=== PATIENT | male | born 1965 | race African-American/Black ===

== ENCOUNTER 2016-10-05 13:28 | Outpatient (CLI) | payer OTHER ==
--- NOTE | 2016-10-05 16:38 | RAD ---
LEFT ANKLE 2 VIEWS: Date: 10/05/16 HISTORY: Disability evaluation. Ankle pain. FINDINGS: No significant soft tissue swelling. Mild degenerative changes seen at the tibiotalar joint with mil d spurring from the tibia. The joint space is preserved. No fracture or acute osseous lesion. 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 POS: [facility]
== END 2016-10-05 13:29 | disposition home or self-care (01) ==
LOC: NAV RAD 13:28
PROVIDERS: ATTEND Family Medicine
DX: Z02.71 Encounter for disability determination (principal); M25.579 Pain in unspecified ankle and joints of unspecified foot